=== PATIENT | female | born 1980 | race Caucasian/White ===

== ENCOUNTER 2020-05-26 12:19 | Emergency (ER) | payer OTHER ==
[2020-05-26] MEDS ORDERED: Pantoprazole 40 MG Vial IVPUSH ONE (12:26)
[2020-05-26] MEDS ORDERED: Lactated Ringers 1,000 ML IV ONE (12:26)
[2020-05-26] MEDS ORDERED: Famotidine 20 MG/2 ML SDV IVPUSH ONE (12:26)
[2020-05-26] MEDS ORDERED: cefTRIAXone 1 GM in Sodium Chloride 0.9% 100 ML IV ONE (12:26)
[2020-05-26] MEDS ORDERED: Ondansetron 4 MG/2 ML SDV IVPUSH ONE (12:26)
--- NOTE | 2020-05-26 12:26 | EDM.PDOC ---
ED HPI GENERAL MEDICAL PROBLEM - General Chief Complaint: General Stated Complaint: pain and nausea s/p surgery Time Seen by Provider: 05/26/20 12:25 Source of Information: Reports: Patient, Family (). Denies: Old Records (No [facility] records available) History Limitations: Reports: Altered Mental Status - History of Present Illness INITIAL COMMENTS - FREE TEXT/NARRATIVE: The patient was brought to the emergency room via private automobile by her for evaluation of refractory nausea and emesis since he pulled out her right sided ureteral stent at about 9 AM this morning. She did take 325 mg of Tylenol at about 9 AM with no improvement in symptoms with 3 episodes of emesis since that time. The patient did have some moderate nausea during the course of the night and has been using oxycodone after her recent lithotripsy, etc. as below with patient taking 4 tablets of oxycodone within the last 12 hours. She is a somewhat poor historian secondary to some mild sedation from this medication with no previous apparent history of narcotic abuse. She is complaining of 10/10 cramping right CVA tenderness with no current UTI symptoms, however persistent hematuria secondary to recent lithotripsy and stent placement. No recent history of other abdominal pain, heartburn, diarrhea, melena, gross hematochezia, or any food intolerance, including fatty foods, etc.. The patient also denies any recent fever, cough, wheezing, dyspnea, etc.. Onset: Gradual Onset Date: 05/25/20 Duration: Intermittent Location: Reports: Abdomen, Back. Denies: Head, Face, Neck, Chest, Lower Extremity, Left, Lower Extremity, Right, Radiates to Quality: Reports: Same as Previous Episode, Stabbing (As above) Severity: Severe Improves with: Reports: None Worsens with: Reports: None Context: Reports: Other (As above). Denies: Sick Contact, Trauma Associated Symptoms: Reports: Nausea/Vomiting. Denies: Confusion, Chest Pain, Cough, Diaphoresis, Fever/Chills, Headaches, Loss of Appetite, Malaise, Shortness of Breath, Syncope, Weakness Treatments METAL DEALER: Reports: Acetaminophen, Other Medication(s) Right Flank Pain Score (Numeric/FACES): 10 - Related Data Allergies Allergy/AdvReac Type Severity Reaction Status Date / Time sulfamethoxazole Allergy Rash Verified 09/18/20 12:23 [From Bactrim] tamsulosin [From Flomax] Allergy Rash Verified 05/26/20 12:23 tomato Allergy tongue Verified 05/26/20 12:23 swelling trimethoprim [From Bactrim] Allergy Rash Verified 05/26/20 12:23 Home Meds: Home Meds Albuterol Sulfate [Albuterol Sulfate Hfa] 1 puff INH BID PRN 05/26/20 [History] Non-Formulary Medication [NF Drug] 1 applic TOP ASDIRECTED PRN #1 05/26/20 [Rx] Promethazine [Phenergan] 25 mg PO Q4H PRN #10 tab 05/26/20 [Rx] SUMAtriptan [Imitrex] 100 mg PO BID PRN MDD 200 mg in 24hr 05/26/20 [History] Spironolactone [Aldactone] 100 mg PO DAILY 05/26/20 [History] Topiramate [Topamax] 50 mg PO BID 05/26/20 [History] traZODone HCl [Trazodone HCl] 100 mg PO BEDTIME 05/26/20 [History] Past Medical History HEENT History: Reports: Impaired Vision, Other (See Below). Denies: Allergic Rhinitis, Hard of Hearing Other HEENT History: Patient does wear glasses. Cardiovascular History: Reports: None. Denies: Arrhythmia, Heart Murmur, Hypertension Respiratory History: Reports: None. Denies: Asthma, COPD Gastrointestinal History: Reports: None. Denies: GERD, GI Bleed, PUD Genitourinary History: Reports: Renal Calculus, Other (See Below). Denies: Acute Renal Failure, Chronic Renal Insuffiency, STD, Urinary Incontinence, UTI, Recurrent Other Genitourinary History: Right-sided urolithiasis since October 2019 with required lithotripsy, etc. as below BASKET BRAIDER History: Reports: Dysfunctional Uterine Bleeding, Fibroids, . Denies: Endometriosis, Spontaneous : 3 Para: 3 LMP (Approximate): Other (See Below) Other BASKET BRAIDER History: Normal LMP 2 weeks ago. Full term without complications during pregnancies or deliveries Musculoskeletal History: Reports: None. Denies: Arthritis, Fracture, Ost eoarthritis Neurological History: Reports: Headaches, Chronic, Migraines. Denies: Concussion, Head Trauma Psychiatric History: Reports: Anxiety, Depression (Cardiac), Other (See Below). Denies: Addiction, Psych Hospitalization(s), Suicide Attempt, Suicidal Ideation Other Psychiatric History: Chronic insomnia Endocrine/Metabolic History: Reports: None. Denies: Diabetes, Gestational, Diabetes, Type I, Diabetes, Type II, Diabetes Mellitus, Type 3c, Hypothyroidism, IDDM, Obesity/BMI 30+ Hematologic History: Reports: None. Denies: Anemia Immunologic History: Reports: None Dermatologic History: Reports: Other (See Below) (Acne) - Past Surgical History Female Surgical History: Reports: Endometrial Ablation, Kidney stone extraction, Lithotripsy/ESWL, Ureteral Stent, Other (See Below). Denies: D&C, Tubal Ligation Other Female Surgeries/Procedures: Laser lithotripsy of right urinary stone with concomitant stent placement on 05/23/2020 at [facility] in [place], [place]. Endometrial ablation secondary to uterine fibroid and dysfunctional uterine bleeding in 2011. Social & Family History - Tobacco Use Smoking Status *Q: Never Smoker Tobacco Use Within Last Twelve Months: No Used Tobacco, but Quit: No Smoking Cessation Information Provided To Patient: No Second Hand Smoke Exposure: No Second Hand Smoke Education Provided: No - Alcohol Use Alcohol Use History: No Days Per Week of Alcohol Use: 0 Number of Drinks Per Day: 0 Total Drinks Per Week: 0 - Recreational Drug Use Recreational Drug Use: No Drug Use in Last 12 Months: No Recreational Drug Type: Denies: Amphetamines (Speed), Cocaine, Heroin, Inhalants (Glues, Solvents, Aerosols), LSD (Acid), Methamphetamine, Morphine, Oxycodone - Living Situation & Occupation Living situation: Reports: with Family ED ROS GENERAL - Review of Systems Review Of Systems: Comprehensive ROS is negative, except as noted in HPI. ED EXAM, GENERAL - Physical Exam Exam: See Below Exam Limited By: No Limitations General Appearance: WD/WN, No Apparent Distress, Lethargic Eye Exam: Bilateral Eye: EOMI, Normal Inspection (No nystagmus.. Patient is wearing glasses), PERRL Ears: Normal External Exam, Normal Canal, Hearing Grossly Normal, Normal TMs Nose: Normal Inspection, Normal Mucosa, No Blood Throat/Mouth: Normal Inspection, Normal Lips, Normal Teeth, Normal Gums, Normal Oropharynx, Normal Voice, No Airway Compromise. No: Dysphagia, Perioral Cyanosis Head: Atraumatic, Normocephalic. No: Facial Swelling, Facial Tenderness Neck: Normal Inspection, Supple, Non-Tender, Full Range of Motion. No: Carotid Bruit, Lymphadenopathy (L), Lymphadenopathy (R), Thyromegaly Respiratory/Chest: No Respiratory Distress, Lungs Clear, Normal Breath Sounds, No Accessory Muscle Use, Chest Non-Tender. No: Pleural Rub, Retractions Cardiovascular: Normal Peripheral Pulses, Regular Rate, Rhythm, No Edema, No Gallop, No JVD, No Murmur, No Rub. No: Gallop/S3, Gallop/S4, Friction Rub Peripheral Pulses: 2+: Radial (L), Radial (R) GI/Abdominal: Normal Bowel Sounds, Soft, Non-Tender, No Organomegaly, No Distention, No Abnormal Bruit, No Mass. No: Guarding, Rebound, Tender (Female) Exam: Cervical Discharge Rectal (Female) Exam: Deferred Back Exam: Full Range of Motion, CVA Tenderness (R) (Mild). No: CVA Tenderness (L), Muscle Spasm, Paraspinal Tenderness, Vertebral Tenderness Extremities: Normal Inspection, Normal Range of Motion, Non-Tender, No Pedal Edema, Normal Capillary Refill. No: Mily's Sign Neurological: Alert, Oriented, CN II-XII Intact, Normal Cognition, Normal Gait, Normal Reflexes, No Motor/Sensory Deficits, Other (Mild sedation likely secondary to narcotics) Psychiatric: Normal Affect, Normal Mood Skin Exam: Warm, Dry, Intact, Normal Color, No Rash. No: Ecchymosis, Petechiae, Wound/Incision Lymphatic: No Adenopathy Course - Vital Signs Last Recorded V/S: Last Vital Signs Temp 36.9 C 05/26/20 15:14 Pulse 69 05/26/20 15:14 Resp 16 05/26/20 15:14 BP 96/59 L 05/26/20 15:14 Pulse Ox 98 05/26/20 15:14 Vital Signs - 24 hr 05/26/20 05/26/20 05/26/20 12:30 14:14 14:30 Temperature [ 36.8 C 37.0 C Temporal] Pulse, 67 60 68 Peripheral [ Left Pulse Oximetry] Respiratory 18 16 16 Rate Blood Pressure 106/67 101/57 L 98/52 L [Left Upper Arm ] O2 Sat by Pulse 100 97 96 Oximetry 05/26/20 05/26/2005/26/20 14:44 14:59 15:14 Temperature [ 36.9 C Temporal] Pulse, 81 70 69 Peripheral [ Left Pulse Oximetry] Respiratory 16 16 16 Rate Blood Pressure 102/62 99/61 96/59 L [Left Upper Arm ] O2 Sat by Pulse 97 97 98 Oximetry - Orders/Labs/Meds Orders: Active Orders 24 hr Category Date Time Status Peripheral IV Care [RC] . DIRECTED Care 05/26/20 12:27 Active Nothing Per Oral Diet [DIET] Diet 05/26/20 Breakfast Active Abdomen Series w Chest 1V [CR] Stat Exams 05/26/20 12:26 Taken CULTURE BLOOD [BC] Stat Lab 05/26/20 12:50 Received CULTURE BLOOD [BC] Stat Lab 05/26/20 13:20 Received Lactated Ringers [Ringers, Lactated] 1,000 ml Med 05/26/20 14:00 Active IV ASDIRECTED Sodium Chloride 0.9% [Saline Flush] Med 05/26/20 12:26 Active 10 ml FLUSH ASDIRECTED PRN Blood Culture x2 Reflex Set [OM.PC] Urgent Oth 05/26/20 12:26 Ordered Obtain Past Medical Record [OM.PC] Urgent Oth 05/26/20 12:26 Active Peripheral IV Insertion Adult [OM.PC] Stat Oth 05/26/20 12:26 Ordered Resuscitation Status Stat Resus Stat 05/26/20 12:26 Ordered Medication Orders Lactated Ringer's (Ringers, Lactated) 1,000 mls @ 150 mls/hr IV ASDIRECTED GUDELIA Last Admin: 05/26/20 14:05 Dose: 150 mls/hr Documented by: REJI Sodium Chloride (Saline Flush) 10 ml FLUSH ASDIRECTED PRN PRN Reason: Keep Vein Open Last Admin: 05/26/20 14:34 Dose: 10 ml Documented by: Admin: 05/26/20 13:30 Dose: 10 ml Documented by: REJI Labs: Laboratory Tests 05/26/20 05/26/20 05/26/20 Range/Units 12:50 12:50 12:50 WBC 13.3 H (4.0-10.2) K/uL RBC 4.26 (3.77-5.09) M/uL Hgb 13.4 (11.7-15.5) g/dL Hct 39.5 (34.0-46.0) % MCV 92.7 (84.0-98.0) fL MCH 31.5 (28.2-33.3) pg MCHC 33.9 (31.7-36.0) g/dL RDW 11.6 (11.2-14.1) % Plt Count 190 (150-350) K/uL Neut % (Auto) 87.2 H (45.0-80.0) % Lymph % (Auto) 7.1 L (10.0-50.0) % [place] % (Auto) 5.4 (2.0-14.0) % Eos % (Auto) 0.2 (0.0-5.0) % Baso % (Auto) 0.1 (0.0-2.0) % Neut # (Auto) 11.59 H (1.40-7.00) K/uL Lymph # (Auto) 0.95 (0.50-3.50) K/uL [place] # (Auto) 0.72 (0.00-1.00) K/uL Eos # (Auto) 0.02 (0.00-0.50) K/uL Baso # (Auto) 0.01 (0.00-0.20) K/uL PT 9.5 (9.5-12.0) SEC INR 0.9 APTT 25.4 (24.5-32.8) SEC Sodium (136-145) mmol/L Potassium (3.5-5.1) mmol/L Chloride (98-107) mmol/L Carbon Dioxide (21.0-32.0) mmol/L BUN (7-18) mg/dL Creatinine (0.51-1.17) mg/dL Est Cr Clr Drug Dosing Estimated GFR (MDRD) mL/min Glucose (74-106) mg/dL Lactic Acid (0.4-2.0) mmol/L Uric Acid (2.6-7.2) mg/dL Calcium (8.5-10.1) mg/dL Magnesium (1.8-2.4) mg/dL Total Bilirubin (0.2-1.0) mg/dL AST (15-37) U/L ALT (12-78) U/L Alkaline Phosphatase (46-116) IU/L Total Protein (6.4-8.2) g/dL Albumin (3.4-5.0) g/dL Amylase 52 (25-115) U/L Lipase (73-393) U/L HCG, Qual (NEGATIVE) 05/26/20 05/26/20 05/26/20 Range/Units 12:50 12:50 12:50 WBC (4.0-10.2) K/uL RBC (3.77-5.09) M/uL Hgb (11.7-15.5) g/dL Hct (34.0-46.0) % MCV (84.0-98.0) fL MCH (28.2-33.3) pg MCHC (31.7-36.0) g/dL RDW (11.2-14.1) % Plt Count (150-350) K/uL Neut % (Auto) (45.0-80.0) % Lymph % (Auto) (10.0-50.0) % [place] % (Auto) (2.0-14.0) % Eos % (Auto) (0.0-5.0) % Baso % (Auto) (0.0-2.0) % Neut # (Auto) (1.40-7.00) K/uL Lymph # (Auto) (0.50-3.50) K/uL [place] # (Auto) (0.00-1.00) K/uL Eos # (Auto) (0.00-0.50) K/uL Baso # (Auto) (0.00-0.20) K/uL PT (9.5-12.0) SEC INR APTT (24.5-32.8) SEC Sodium 138 (136-145) mmol/L Potassium 3.9 (3.5-5.1) mmol/L Chloride 104 (98-107) mmol/L Carbon Dioxide 24.3 (21.0-32.0) mmol/L BUN 8 (7-18) mg/dL Creatinine 1.02 (0.51-1.17) mg/dL Est Cr Clr Drug Dosing TNP Estimated GFR (MDRD) > 60 mL/min Glucose 118 H (74-106) mg/dL Lactic Acid 1.2 (0.4-2.0) mmol/L Uric Acid 3.6 (2.6-7.2) mg/dL Calcium 8.7 (8.5-10.1) mg/dL Magnesium 1.6 L (1.8-2.4) mg/dL Total Bilirubin 0.4 (0.2-1.0) mg/dL AST 15 (15-37) U/L ALT 22 (12-78) U/L Alkaline Phosphatase 48 (46-116) IU/L Total Protein 6.9 (6.4-8.2) g/dL Albumin 3.8 (3.4-5.0) g/dL Amylase (25-115) U/L Lipase 258 (73-393) U/L HCG, Qual Negative (NEGATIVE) Meds: Medications Generic Name Dose Route Start Last Admin Trade Name Freq PRN Reason Stop Dose Admin Lactated Ringer's 1,000 mls @ 150 mls/hr 05/26/20 14:00 05/26/20 14:05 Ringers, Lactated IV 150 mls/hr ASDIRECTED GUDELIA Administration Sodium Chloride 10 ml 05/26/20 12:26 05/26/20 14:34 Saline Flush FLUSH 10 ml ASDIRECTED PRN Administration Keep Vein Open Discontinued Medications Generic Name Dose Route Start Last Admin Trade Name Freq PRN Reason Stop Dose Admin Diphenhydramine HCl 50 mg 05/26/20 14:15 05/26/20 14:34 Benadryl IVPUSH 05/26/20 14:16 50 mg ONETIME ONE Administration Famotidine 40 mg 05/26/20 12:26 05/26/20 13:36 Pepcid IVPUSH 05/26/20 12:27 40 mg ONETIME ONE Administration Lactated Ringer's 1,000 mls @ 999 mls/hr 05/26/20 12:26 05/26/20 14:06 Ringers, Lactated IV 05/26/20 13:26 Not Given .BOLUS ONE Ceftriaxone Sodium 1 gm/ 100 mls @ 200 mls/hr 05/26/20 12:26 05/26/20 13:37 Sodium Chloride IV 05/26/20 12:55 200 mls/hr ONETIME ONE Administration Ketorolac Tromethamine 30 mg 05/26/20 12:28 05/26/20 13:35 Toradol IVPUSH 05/26/20 12:29 30 mg ONETIME ONE Administration Magnesium Oxide 800 mg 05/26/20 14:13 05/26/20 14:34 Magnesium Oxide PO 05/26/20 14:14 800 mg ONETIME ONE Administration Ondansetron HCl 4 mg 05/26/20 12:26 05/26/20 13:35 Zofran IVPUSH 05/26/20 12:27 4 mg ONETIME ONE Administration Pantoprazole Sodium 40 mg 05/26/20 12:26 05/26/20 13:36 Protonix Iv IVPUSH 05/26/20 12:27 40 mg ONETIME ONE Administration - Radiology Interpretation Free Text/Narrative:: None Departure - Departure Time of Disposition: 17:00 Disposition: Home, Self-Care 01 Condition: Good Clinical Impression: Hypomagnesemia Urolithiasis Qualifiers: Urinary calculus location: other lower urinary tract location Qualified Code(s): N21.8 - Other lower urinary tract calculus Abdominal pain Qualifiers: Abdominal location: right upper quadrant Qualified Code(s): R10.11 - Right upper quadrant pain Nausea & vomiting Qualifiers: Vomiting type: unspecified Vomiting Intractability: non-intractable Qualified Code(s): R11.2 - Nausea with vomiting, unspecified - Discharge Information *PRESCRIPTION DRUG MONITORING PROGRAM REVIEWED*: Not Applicable *COPY OF PRESCRIPTION DRUG MONITORING REPORT IN PATIENT PITA: Not Applicable Prescriptions: Promethazine [Phenergan] 25 mg PO Q4H PRN #10 tab PRN Reason: Nausea/Vomiting Instructions: Nausea and Vomiting, Adult, [id number], Abdominal Pain, Adult, [id number] Referrals: PCP,Not In Area [Primary Care Provider] - Forms: ED Department Discharge Additional Instructions: 1. Followup with your regular provider as already scheduled and/or previously directed with recommended additional CBC, basic metabolic panel, magnesium level, and urine test with culture and sensitivity, at that time. Bring these discharge instructions with you to that visit. 2. Tylenol 650 mg by mouth every 4 hours and/or OTC ibuprofen 2-3 tabs by mouth every 6 hours with food as directed./needed. You may stagger these medications for 48-72 hours only, which essentially means that you are receiving a pain medication about every 2 hours. Next dose of ibuprofen in 3 hours as needed secondary to medications given in the emergency room 3. Maries diet including encouragement of oral fluids such as sports drinks, etc. for 24-48 hours as directed. Advance to regular diet as tolerated thereafter. 4. Sedation precautions with no driving, etc. for 18 hours because of emergency room medications. 5. Decrease and/or hold trazodone this evening depending on her sedation at bedtime 6. Additional OTC Benadryl 50 mg p.o. every 4 hours as needed, if colic recurs, with sedation precautions with this medication 7. Immediately after this visit verify that your cellular telephone's voicemail has been activated and is empty. Also verify that your home telephone's answering machine is operating properly and has space to receive messages. Note that it is sometimes necessary for us to be able to contact you at a later date to discuss your medical care. 8. Please remember that we are ALWAYS here for you and want to answer any questions you may have. Feel free to call the hospital any time and we call you back NOHEMI. Sepsis Event Note (ED) - Focused Exam Vital Signs: Vital Signs Temp Pulse Resp BP Pulse Ox 05/26/20 15:14 36.9 C 69 16 96/59 L 98 05/26/20 14:59 70 16 99/61 97 05/26/20 14:44 81 16 102/62 97 05/26/20 14:30 68 16 98/52 L 96 05/26/20 14:14 37.0 C 60 16 101/57 L 97 05/26/20 12:30 36.8 C 67 18 106/67 100 - Problem List & Annotations (1) Abdominal pain SNOMED Code(s): 39480431 Code(s): R10.9 - UNSPECIFIED ABDOMINAL PAIN Status: Acute Priority: High Current Visit: No Onset Date: 05/26/20 Annotation/Comment:: Mostly in the right CVA area likely secondary to colic after ureteral stent removal earlier this morning as above. High-dose IV Pepcid and IV Protonix were given as GI prophylaxis with additional IV Zofran for control of her nausea. IV Toradol was also given for pain control. Additional aggressive therapy needed for pain control as above. Sedation precautions given. Qualifiers: Abdominal location: right upper quadrant Qualified Code(s): R10.11 - Right upper quadrant pain (2) Nausea & vomiting SNOMED Code(s): 78728081 Code(s): R11.2 - NAUSEA WITH VOMITING, UNSPECIFIED Status: Acute Priority: High Current Visit: No Onset Date: ~05/25/20 Annotation/Comment:: Likely secondary to current narcotic use. Note patient given a 1 L IV bolus of lactated Ringer's. Qualifiers: Vomiting type: unspecified Vomiting Intractability: non-intractable Qualified Code(s): R11.2 - Nausea with vomiting, unspecified (3) Urolithiasis SNOMED Code(s): 13629401, 193395819 Code(s): N20.9 - URINARY CALCULUS, UNSPECIFIED Status: Acute Priority: High Current Visit: No Annotation/Comment:: Note recent successful lithotripsy and removal of all stones by her 's history. IV Rocephin given secondary to stent removal, mild leukocytosis, etc. today. Qualifiers: Urinary calculus location: other lower urinary tract location Qualified Code(s): N21.8 - Other lower urinary tract calculus (4) Hypomagnesemia SNOMED Code(s): 878535380 Code(s): E83.42 - HYPOMAGNESEMIA Status: Acute Priority: High Current Visit: Yes Onset Date: 05/26/20 Annotation/Comment:: High-dose magnesium oxide given orally in the emergency room as above. Close follow-up by regular provider as per discharge instructions. - Problem List Review Problem List Initiated/Reviewed/Updated: Yes - My Orders Last 24 Hours: My Active Orders 05/26/20 Breakfast Nothing Per Oral Diet [DIET] 05/26/20 12:26 Abdomen Series w Chest 1V [CR] Stat Sodium Chloride 0.9% [Saline Flush] 10 ml FLUSH ASDIRECTED PRN Blood Culture x2 Reflex Set [OM.PC] Urgent Obtain Past Medical Record [OM.PC] Urgent Peripheral IV Insertion Adult [OM.PC] Stat Resuscitation Status Stat 05/26/20 12:27 Peripheral IV Care [RC] . DIRECTED 05/26/20 12:50 CULTURE BLOOD [BC] Stat 05/26/20 13:20 CULTURE BLOOD [BC] Stat 05/26/20 14:00 Lactated Ringers [Ringers, Lactated] 1,000 ml IV ASDIRECTED - Assessment/Plan Last 24 Hours: My Active Orders 05/26/20 Breakfast Nothing Per Oral Diet [DIET] 05/26/20 12:26 Abdomen Series w Chest 1V [CR] Stat Sodium Chloride 0.9% [Saline Flush] 10 ml FLUSH ASDIRECTED PRN Blood Culture x2 Reflex Set [OM.PC] Urgent Obtain Past Medical Record [OM.PC] Urgent Peripheral IV Insertion Adult [OM.PC] Stat Resuscitation Status Stat 05/26/20 12:27 Peripheral IV Care [RC] . DIRECTED 05/26/20 12:50 CULTURE BLOOD [BC] Stat 05/26/20 13:20 CULTURE BLOOD [BC] Stat 05/26/20 14:00 Lactated Ringers [Ringers, Lactated] 1,000 ml IV ASDIRECTED Assessment:: As above Plan: As above. Extensive precautions were given to the patient and her , who are in agreement with the treatment plan. See Patient Instructions for further treatment and plan.
[2020-05-26] MEDS ORDERED: Ketorolac 30 MG/ML SDV IVPUSH ONE (12:28)
[2020-05-26 13:10] LABS: PTT,PARTIAL THROMBOPLSTIN TIME 25.4 SEC (24.5-32.8)
[2020-05-26 13:11] LABS: CHLORIDE,CL 104 mmol/L (98-107); SODIUM,NA 138 mmol/L (136-145)
[2020-05-26] MEDS: Sodium Chloride 0.9% 10 ML Syringe FLUSH PRN ×2 (13:30→14:34)
[2020-05-26] MEDS ORDERED: Lactated Ringers 1,000 ML IV SCH (14:00)
[2020-05-26] MEDS ORDERED: Magnesium Oxide 400 MG Tab PO ONE (14:13)
[2020-05-26] MEDS ORDERED: diphenhydrAMINE 50 MG/ML SDV IVPUSH ONE (14:15)
== END 2020-05-26 17:00 | disposition home or self-care (01) ==
LOC: LL.ED 12:19
DX: N21.8 Other lower urinary tract calculus (principal); E83.42 Hypomagnesemia; R11.2 Nausea with vomiting, unspecified; F41.9 Anxiety disorder, unspecified; F32.9 Major depressive disorder, single episode, unspecified; Z88.2 Allergy status to sulfonamides; Z88.8 Allergy status to other drugs, medicaments and biological substances; Z88.1 Allergy status to other antibiotic agents; Z91.018 Allergy to other foods; Z79.899 Other long term (current) drug therapy
CPT/HCPCS: 36415; 74022; 80053; 82150; 83605; 83690; 83735; 84550; 84703; 85025; 85610; 85730; 87040; 96361; 96365; 96375; 99284; A9270; C9113; J0696; J1200; J1885; J2405; J3490; J7050; J7120